=== PATIENT | female | born 1950 | race Caucasian/White ===

== ENCOUNTER 2021-12-22 07:48 | Day surgery (SDC) | payer OTHER ==
[2021-12-17 13:51] VITALS: BMI 33.2
[2021-12-22] MEDS ORDERED: LIDOCAINE HCL/PF 2% SDV 5ML VIAL ONE (07:54)
[2021-12-22] MEDS ORDERED: PROPOFOL 20 ML ONE ×4 (07:54)
[2021-12-22 09:40] VITALS: TEMP 98
[2021-12-22 10:40] VITALS: BP 129/72; PULSE 86
== END 2021-12-22 10:40 | disposition home or self-care (01) ==
LOC: FASU-ENDO 07:48
PROVIDERS: ATTEND Internal Medicine Gastroenterology
PROC: 0DJD8ZZ Inspection of Lower Intestinal Tract, Via Natural or Artificial Opening Endoscopic (ICD-10-PCS; principal; 2021-12-22 08:58)
DX: Z12.11 Encounter for screening for malignant neoplasm of colon (principal)